=== PATIENT | female | born 1945 | race Caucasian/White ===

== ENCOUNTER 2018-07-26 13:21 | Emergency (ER) | payer MEDICARE, BC ==
[2018-07-26] MEDS ORDERED: 0.9 % SODIUM CHLORIDE 1,000 ML BAG IV ONE (13:35)
--- NOTE | 2018-07-26 13:40 | Emergency Department Record ---
History of Present Illness - General Chief complaint: Hypogylcemia Stated complaint: LOW BLOOD SUGAR Time Seen by Provider: 07/26/18 13:34 Source: Patient, Family Mode of Arrival: EMS Limitations: No limitations - History of Present Illness Initial comments: The patient is here due to her finding her on the bathroom floor unresponsive. EMS was called and found her BS to be 24. She did receive an amp of D50 with improvement in her mental status. Now she is stating she does not feel well but denies any CP, SOB, ERWIN or any recent illnesses. Per the patient's she was feeling well prior and went into the bathroom about an hour ago. He then was doing a few things around the house and then was calling for her and found her lying on the floor not answering him. He then called 911. There was no obvious head injury or any lacerations. MD Complaint: Generalized weakness Onset/Timin -: Hour(s) Location: Generalized Severity: Severe - [place] Coma Scale Eye Response: (4) Open spontaneously Motor Response: (6) Obeys commands Verbal Response: (4) Confused conversation [place] Total: 14 - Related Data Allergies Allergy/AdvReac Type Severity Reaction Status Date / Time adhesive tape Allergy Severe RASH Verified 07/26/18 15:31 betamethasone Allergy Severe RASH Verified 07/26/18 15:31 latex Allergy Severe RASH Verified 07/26/18 15:31 terbinafine Allergy Severe RASH Verified 07/26/18 15:31 adhesive Allergy Intermediate RASH Verified 07/26/18 15:31 fluconazole [From Diflucan] Allergy Intermediate RASH Verified 07/26/18 15:31 silver sulfadiazine Allergy Intermediate RASH Verified 07/26/18 15:31 Travel Screening - Travel/Exposure Within Last 30 Days Have you traveled within the last 30 days?: No - Travel/Exposure Within Last Year Have you traveled outside the [place] in the last year?: No - Additonal Travel Details Have you been exposed to anyone with a communicable illness?: No - Travel Symptoms Symptom Screening: None Review of Systems Constitutional: Denies: Chills, Fever Eyes: Denies: Eye discharge ENT: Denies: Congestion Respiratory: Denies: Dyspnea Cardiovascular: Denies: Arrhythmia, Chest pain Endocrine: Reports: Fatigue Gastrointestinal: Denies: Abdominal pain Genitourinary: Denies: Dysuria Musculoskeletal: Denies: Arthralgia Skin: Denies: Bruising Past Medical History - SOCIAL HISTORY Smoking Status: Former smoker Alcohol Use: None Drug Use: None Family Medical History Any Significant Family History?: No Family Hx Comment (NOT TO BE USED IN PLACE OF ITEMS BELOW): pt unable to answer questions regarding her history or family history Course Vital Signs 07/26/18 13:29 Temperature 90.5 F L Pulse Rate 80 Respiratory 16 Rate Blood Pressure 188/74 Pulse Ox 98 - Reevaluation(s) Reevaluation #1: The patient is doing a lot better at this time. Her blood sugar is back to normal and she is talking and walking normally with no problems. She was instructed to see her PCP this week for recheck and to decrease her Insulin mildly due to the hypoglycemia. The patient denies any pain, visual changes, nausea, or ERWIN. 07/26/18 15:47 Reevaluation #2: 2nd EKG: NSR at 78. Normal QT interval. 07/26/18 15:53 Reevaluation #3: The patient is doing a lot better at this time. Her temp is back to normal and she is ambulating normally. She is ready for home. 07/26/18 16:05 Medical Decision Making - Data Complexity MDM Data: Labs Ordered and/or Reviewed, X-Ray Ordered and/or Reviewed, EKG Ordered and/or Reviewed - Lab Data Result diagrams: 07/26/18 13:45 07/26/18 13:45 - EKG Data -: EKG Interpreted by Me (NSR at 78, Prolonged NE and borderline prolonged QT. Neg ischemic changes.) - Radiology Data Radiology results: Report reviewed (Head CT: Neg for any acute changes. CXR: Neg for acute changes.) Disposition Disposition: Discharge Clinical Impression: Hypoglycemia Disposition: Home, Self-Care Condition: (2) Stable Instructions: Hypoglycemia in a Person with Diabetes (ED) Additional Instructions: Please decrease your Insulin dose by 20% and eat regular meals. Please monitor your blood sugar twice a day and see your family doctor next week to possibly adjust your Insulin. Return to the ER for any problems or new issues. Forms: Patient Portal Access Time of Disposition: 16:07 Quality - Quality Measures Quality Measures: N/A - Blood Pressure Screening View Details: Yes Does Patient Have Any of the Following: Active Dx of HTN Blood Pressure Classification: Pre-Hypertensive BP Reading Systolic Measurement: 132 Diastolic Measurement: 48 Screening for High Blood Pressure: Patient Exclusion, Hx of HTN [G9744]
[2018-07-26 13:54] LABS: BASO % 0.2 % (0-6); EOS % 0.8 % (0-6); GRAN % 73.3 % (47-80); HEMOGLOBIN 10.8 gm/dl (11.6-16.0); LYMPH % 15.6 % (16-45); MEAN CELL VOLUME 88.5 fl (81-97); MEAN CORPUSCULAR HEMOGLOBIN 28.1 pg (27-33); MEAN CORPUSCULAR HGB CONC 31.8 g/dl (32-36); MONO % 10.1 % (0-9); PLATELET COUNT 397 K/uL (130-400); RED BLOOD COUNT 3.84 M/uL (3.80-5.40); RED CELL DISTRIBUTION WIDTH 14.1 % (11.5-14.5); WHITE BLOOD COUNT W/O DIFF 14.6 K/uL (4.2-12.2)
[2018-07-26 14:08] LABS: BILIRUBIN,TOTAL 0.2 mg/dL (0.2-1.0); CREATININE 1.1 mg/dL (0.5-0.9)
[2018-07-26 14:09] LABS: TOTAL PROTEIN 6.5 g/dL (6.6-8.7)
[2018-07-26 14:13] LABS: ALB/GLOB RATIO 1.5 (1.1-1.8); ALBUMIN 3.9 g/dL (4.0-5.0)
[2018-07-26] MEDS ORDERED: ONDANSETRON HCL IV 4 MG/2 ML VIAL IVP ONE (14:55)
[2018-07-26 15:14] LABS: URINE APPEARANCE CLEAR; URINE BILIRUBIN NEGATIVE (NEGATIVE); URINE BLOOD TRACE-I (NEGATIVE); URINE COLOR YELLOW; URINE KETONE NEGATIVE (NEGATIVE); URINE LEUKOCYTE ESTERASE NEGATIVE (NEGATIVE); URINE NITRITE NEGATIVE (NEGATIVE); URINE PROTEIN NEGATIVE (NEGATIVE); URINE UROBILINOGEN 0.2 E.U./dL (0.20 - 1.00)
[2018-07-26 15:23] LABS: URINE RBC 0 - 2 (NONE SEEN); URINE WBC NONE SEEN (0-2/hpf)
--- NOTE | 2018-07-28 12:51 | RADIOLOGY REPORT ---
EXAM: CHEST, TWO VIEWS HISTORY: WEAKNESS. TECHNIQUE: AP and lateral views of the chest were obtained. Comparison: None. FINDINGS: The heart size is normal. The lungs appear hyperinflated suggesting underlying COPD. There is probably calcification of the mitral annulus. No definite acute infiltrate seen and no pleural effusion or pneumothorax evident. IMPRESSION: 1. HYPERINFLATION SUGGESTING COPD. NO ACUTE INFILTRATE EVIDENT. 2. SOME CALCIFICATION OF THE MITRAL ANNULUS. JOB NUMBER: [id number] MTDD
--- NOTE | 2018-07-28 12:54 | CT SCAN REPORT ---
EXAM: EMERGENCY HEAD CT HISTORY: CONFUSION, LOSS OF CONSCIOUSNESS. TECHNIQUE: Axial CT scan of the head was performed without IV contrast. Comparison: None. FINDINGS: No definite acute intracranial hemorrhage identified. No focal mass effect or midline shift evident. Mild generalized atrophy is present. No definite acute infarct or intracranial mass lesion seen. No depressed calvarial fracture evident. There is probably some postop change involving the left orbit and correlation with the surgical history is suggested. IMPRESSION: 1. NO ACUTE INTRACRANIAL HEMORRHAGE OR FOCAL MASS EFFECT EVIDENT. 2. GENERALIZED ATROPHY. 3. PROBABLE POSTOP CHANGE LEFT ORBIT. JOB NUMBER: [id number] MTDD
== END 2018-07-26 16:28 | disposition home or self-care (01) ==
LOC: ER 13:21
DX: E11.649 Type 2 diabetes mellitus with hypoglycemia without coma (principal); R53.1 Weakness; Z79.4 Long term (current) use of insulin; I10 Essential (primary) hypertension; Z87.891 Personal history of nicotine dependence
CPT/HCPCS: 99284 ×2; 96374; 96361; 85025; 80053; 81001; 84443; 84484; 71046; 70450; 93005; 93010; J2405; J7030

== ENCOUNTER 2018-08-26 04:16 | Observation (INO) | payer MEDICARE, BC ==
[2018-08-26] MEDS ORDERED: ONDANSETRON HCL IV 4 MG/2 ML VIAL IVP ONE (04:26)
[2018-08-26] MEDS ORDERED: 0.9 % SODIUM CHLORIDE 1000ML 1,000 ML IV SCH (04:30)
--- NOTE | 2018-08-26 04:32 | Emergency Department Record ---
History of Present Illness - General Chief complaint: Weakness Stated complaint: WEAKNESS Time Seen by Provider: 08/26/18 04:25 Source: Patient Mode of Arrival: EMS Limitations: No limitations - History of Present Illness Initial comments: 73 yo female presents to ED for evaluation of nausea, vomiting, and diarrhea that began several hours ago. Patient called EMS as she was unable to stand from the bathroom due to copious loose stools. Upon standing, the patient experienced near syncope and cardiac pause. Patient denies fevers, chills, or abdominal pain symptoms. Patient did receive Zofran [employer]. MD Complaint: Generalized weakness Onset/Timin -: Hour(s) Location: Generalized Severity: Moderate Consistency: Constant Improves with: None Worsens with: None Associated Symptoms: Nausea/vomiting - [place] Coma Scale Eye Response: (4) Open spontaneously Motor Response: (6) Obeys commands Verbal Response: (5) Oriented Oumar Total: 15 - Symptoms of Stroke Baseline State: Baseline State - Related Data Allergies Allergy/AdvReac Type Severity Reaction Status Date / Time adhesive tape Allergy Severe RASH Verified 08/26/18 05:54 betamethasone Allergy Severe RASH Verified 08/26/18 05:54 latex Allergy Severe RASH Verified 08/26/18 05:54 terbinafine Allergy Severe RASH Verified 08/26/18 05:54 adhesive Allergy Intermediate RASH Verified 08/26/18 05:54 fluconazole [From Diflucan] Allergy Intermediate RASH Verified 08/26/18 05:54 silver sulfadiazine Allergy Intermediate RASH Verified 08/26/18 05:54 Travel Screening - Travel/Exposure Within Last 30 Days Have you traveled within the last 30 days?: No - Travel/Exposure Within Last Year Have you traveled outside the [place] in the last year?: No - Additonal Travel Details Have you been exposed to anyone with a communicable illness?: No - Travel Symptoms Symptom Screening: Diarrhea, Vomiting Review of Systems Constitutional: Denies: Chills, Fever, Malaise, Night sweats Eyes: Denies: Eye discharge, Eye pain ENT: Denies: Congestion, Ear pain, Epistaxis Respiratory: Denies: Cough, Dyspnea Cardiovascular: Denies: Chest pain, Dyspnea on exertion Endocrine: Denies: Fatigue, Heat or cold intolerance Gastrointestinal: Reports: Diarrhea, Nausea, Vomiting Genitourinary: Denies: Incontinence, Retention Musculoskeletal: Denies: Arthralgia, Back pain, Gout, Joint swelling Skin: Denies: Bruising, Change in color Neurological: Denies: Abnormal gait, Confusion, Headache, Seizure Psychiatric: Denies: Anxiety Hematological/Lymphatic: Denies: Anemia, Blood Clots Past Medical History - SOCIAL HISTORY Smoking Status: Former smoker Alcohol Use: None Drug Use: None - RESPIRATORY Hx Respiratory Disorders: No - CARDIOVASCULAR Hx Cardio Disorders: Yes Hx Hypertension: Yes - NEURO Hx Neuro Disorders: No - GI Hx GI Disorders: No - Hx Genitourinary Disorders: No - ENDOCRINE Hx Endocrine Disorders: Yes Hx Diabetes: Yes - MUSCULOSKELETAL Hx Musculoskeletal Disorders: No - PSYCH Hx Psych Problems: No - HEMATOLOGY/ONCOLOGY Hx Hematology/Oncology Disorders: No Family Medical History Any Significant Family History?: No Family Hx Comment (NOT TO BE USED IN PLACE OF ITEMS BELOW): pt unable to answer questions regarding her history or family history Hx Cancer: Grandparents Physical Exam - General General Appearance: Alert, Oriented x3, Cooperative, Mild distress Limitations: No limitations - Head Head exam: Atraumatic, Normocephalic, Normal inspection Head exam detail: negative: Abrasion, Contusion, Reza's sign, General tenderness, Hematoma, Laceration - Eye Eye exam: Normal appearance. negative: Conjunctival injection, Periorbital swelling, Periorbital tenderness, Scleral icterus - ENT Ear exam: negative: Auricular hematoma, Auricular trauma Nasal Exam: negative: Active bleeding, Discharge, Dried blood, Foreign body Mouth exam: negative: Drooling, Laceration, Muffled voice, Tongue elevation - Neck Neck exam: Normal inspection. negative: Meningismus, Tenderness - Respiratory Respiratory exam: Normal lung sounds bilaterally. negative: Rales, Respiratory distress, Rhonchi, Stridor - Cardiovascular Cardiovascular Exam: Regular rate, Normal rhythm, Normal heart sounds - GI/Abdominal GI/Abdominal exam: Soft. negative: Rebound, Rigid, Tenderness - Rectal Rectal exam: Deferred - exam: Deferred - Extremities Extremities exam: negative: Pedal edema, Tenderness - Back Back exam: Denies: CVA tenderness (R), CVA tenderness (L) - Neurological Neurological exam: Alert, Oriented X3 - Psychiatric Psychiatric exam: Normal affect, Normal mood - Skin Skin exam: Normal color. negative: Abrasion Type of lesion: negative: abrasion Course Vital Signs 08/26/18 04:17 Temperature 97.7 F Pulse Rate 80 Respiratory 20 Rate Blood Pressure 120/53 Pulse Ox 96 - Reevaluation(s) Reevaluation #1: 08/26/18 04:31 EKG: NSR 79 Normal axis, normal intervals No acute ST-T wave changes Reevaluation #2: 08/26/18 04:55 Laboartory studies were reviewed: WBC 21.2 BUN 35 Creatinine 1.6 (baseline 1.1) Glucose 249 Phenergan and benadryl ordered via IV for recurrent nausea symptoms (given Zofran pre-hospital). Will obtain CT imaging without contrast for further evaluation. Reevaluation #3: 08/26/18 05:35 Patient is back from CT imaging, reports improvement in her symptoms. Reevaluation #4: 08/26/18 07:43 CT Abdomen and Pelvis: Thickened esophagus suspicious for hiatal hernia Tiny non-obstructing calculus No significant bowel obstruction No acute inflammatory process. Patient was reassessed, reports improvement in her symptoms however remains tired. Will admit for observation and correction of her JIM/dehydration. Case was discussed with Ela (HARDEEP), will accept admission at this time. Medical Decision Making - Lab Data Result diagrams: 08/26/18 04:25 08/26/18 04:25 Disposition Disposition: Admit Clinical Impression: Nausea vomiting and diarrhea, Dehydration, JIM (acute kidney injury) Disposition: Still a Patient at [facility] Decision to Admit: Admit from ER Decision to Admit Date: 08/26/18 Decision to Admit Time: 07:45 Condition: (2) Stable Forms: Patient Portal Access Time of Disposition: 07:45 Quality - Quality Measures Quality Measures: N/A - Blood Pressure Screening Does Patient Have Any of the Following: Active Dx of HTN Blood Pressure Classification: Pre-Hypertensive BP Reading Systolic Measurement: 120 Diastolic Measurement: 53 Screening for High Blood Pressure: Patient Exclusion, Hx of HTN [G9744]
[2018-08-26 04:41] LABS: HEMATOCRIT 38.4 % (35.0-47.0); HEMOGLOBIN 12.4 gm/dl (11.6-16.0); MEAN CELL VOLUME 88.9 fl (81-97); MEAN CORPUSCULAR HEMOGLOBIN 28.7 pg (27-33); MEAN CORPUSCULAR HGB CONC 32.3 g/dl (32-36); MEAN PLATELET VOLUME 11.5 fl (7.4-10.4); PLATELET COUNT 337 K/uL (130-400); RED BLOOD COUNT 4.32 M/uL (3.80-5.40); RED CELL DISTRIBUTION WIDTH 13.5 % (11.5-14.5)
[2018-08-26 04:42] LABS: WHITE BLOOD COUNT W/O DIFF 21.2 K/uL (4.2-12.2)
[2018-08-26 04:47] LABS: BILIRUBIN,TOTAL 0.3 mg/dL (0.2-1.0); CREATININE 1.6 mg/dL (0.5-0.9); TOTAL PROTEIN 7.3 g/dL (6.6-8.7)
[2018-08-26 04:52] LABS: ALB/GLOB RATIO 1.3 (1.1-1.8); ALBUMIN 4.1 g/dL (4.0-5.0)
[2018-08-26] MEDS ORDERED: DIPHENHYDRAMINE HCL 50 MG/ML VIAL IVP ONE (04:52)
[2018-08-26] MEDS ORDERED: PROMETHAZINE HCL 12.5 MG in 0.9 % SODIUM CHLORIDE 100ML 100 ML IVPB ONE (04:52)
[2018-08-26 05:45] LABS: URINE APPEARANCE CLEAR; URINE BILIRUBIN NEGATIVE (NEGATIVE); URINE BLOOD TRACE-I (NEGATIVE); URINE COLOR YELLOW; URINE KETONE NEGATIVE (NEGATIVE); URINE LEUKOCYTE ESTERASE NEGATIVE (NEGATIVE); URINE NITRITE NEGATIVE (NEGATIVE); URINE PROTEIN TRACE (NEGATIVE); URINE UROBILINOGEN 0.2 E.U./dL (0.20 - 1.00)
[2018-08-26 05:46] LABS: URINE BACTERIA NONE SEEN; URINE EPITHELIAL CELLS 0 - 2 (FEW); URINE RBC 0 - 2 (NONE SEEN); URINE WBC 0 - 2 (0-2/hpf)
[2018-08-26] MEDS ORDERED: INSULIN GLARGINE HUM REC ANLOG 100 UNIT SQ SCH (09:13)
[2018-08-26] MEDS ORDERED: 0.9 % SODIUM CHLORIDE 1000ML 1,000 ML IV PRN (09:13)
[2018-08-26] MEDS ORDERED: ONDANSETRON HCL IV 4 MG/2 ML VIAL IVP PRN (09:13)
--- NOTE | 2018-08-26 09:46 | CT SCAN REPORT ---
EXAM: CT OF THE ABDOMEN AND PELVIS WITHOUT CONTRAST HISTORY: DIFFUSE ABDOMINAL PAIN. TECHNIQUE: Sequential axial images were obtained from the diaphragms through the ischiorectal fossa without intravenous or oral contrast administration. FINDINGS: There is abnormal wall thickening of the distal esophagus and gastroesophageal junction. Direct visualization is recommended. There is a small sliding type hiatal hernia. Nonopacified liver appears normal. The gallbladder, pancreas, spleen appear normal. The adrenal glands and kidneys appear normal. There is a nonobstructing calculus in the left kidney. There are vascular calcifications present. Fat containing umbilical hernia. The small bowel appears normal. The appendix is visualized and appears normal. There is colonic diverticulosis without evidence of diverticulitis. The urinary bladder appears normal. There is atherosclerotic change of the abdominal aorta. There is degenerative change of the lumbar spine most pronounced at L4-L5. IMPRESSION: 1. MILD WALL THICKENING OF THE DISTAL ESOPHAGUS. SMALL SLIDING TYPE HIATAL HERNIA. DIRECT VISUALIZATION IS RECOMMENDED. 2. NONOBSTRUCTING CALCULUS LEFT KIDNEY. 3. FAT CONTAINING UMBILICAL HERNIA. 4. MULTILEVEL DEGENERATIVE CHANGE OF THE LUMBAR SPINE. FINDINGS MOST PRONOUNCED AT THE L4-L5 LEVEL. JOB NUMBER: [id number] [facility]
--- NOTE | 2018-08-26 11:17 | History & Physical ---
History of Present Illness - Date of Service Date of Service for History & Physical: 08/26/18 - History of Present Illness Admitting Diagnosis: Nausea, vomiting, diarrhea. JIM. Dehydration History of Present Illness: 08/26/18 73 yo female presents N/V/D that began at 0100 on 08/26/2018. Pt had continuous loose stools during the night causing weakness and experienced a near syncope episode while attempting to stand from the toilet. called EMS and during transport to [facility] pt experience N/V and was given Zofran. Pt denies fever , chills, night sweats, cough, congestion, abdominal pain, or recent illness. Admitted for observation to correct JIM/Dehydration. PMH includes DM with acidity tester use of insulin, HTN, and nicotine dependence. Recent ER visit on 07/26/2018 for night time hypoglycemia, blood sugar 24. VS: Temp 97.7, BP 134/58, HR 99, RR 20, 99% RA WBC 21.2, Hgb 12.4, Hct 38.4, Plt 337 Na 136, K 4.2, Cl 101, CO2 19, BUN 35 (baseline 30), Cr 1.6 (baseline 1.1), eGFR 33 (baseline 52), Glucose 249, AST 10, ALT 10, Lipase 65 UA neg for infection, trace protein and glucose 100mg/dL Rotavirus antigen pending EKG NSR, HR 79 CT Abd/pelvis No significant bowel obstruction, no acute inflammatory process, mild esophageal wall thickening, suspicion of hiatal hernia, small non- obstructing calculus left kidney, degenerative change of lumbar spine at L4-L5 08/26/18 Pt resting in bed, no acute distress, tolerating clear liquids. A&Ox4 denies current N/V/D, dizziness, abdominal or chest pain, or sob. Reports concern of kidney function (per PCP Carlin Rogers) and elevated WBC, chronic back pain r/t spinal stenosis. Continue clear liquid diet, IVF hydration, recheck CBC w/ diff, CMP, and check Hgb A1C this afternoon. PCP: Carlin Rogers Travel Screening - Travel/Exposure Within Last 30 Days Have you traveled within the last 30 days?: No - Travel/Exposure Within Last Year Have you traveled outside the [place] in the last year?: No - Additonal Travel Details Have you been exposed to anyone with a communicable illness?: No - Travel Symptoms Symptom Screening: Diarrhea, Vomiting Review of Systems Constitutional: Denies: Chills, Fever, Malaise, Night sweats Eyes: Denies: Eye discharge, Eye pain ENT: Denies: Congestion, Ear pain, Epistaxis Respiratory: Denies: Cough, Dyspnea Cardiovascular: Denies: Chest pain, Dyspnea on exertion Endocrine: Denies: Fatigue, Heat or cold intolerance Gastrointestinal: Reports: Diarrhea, Nausea, Vomiting Genitourinary: Denies: Incontinence, Retention Musculoskeletal: Denies: Arthralgia, Back pain, Gout, Joint swelling Skin: Denies: Bruising, Change in color Neurological: Denies: Abnormal gait, Confusion, Headache, Seizure Psychiatric: Denies: Anxiety Hematological/Lymphatic: Denies: Anemia, Blood Clots Past Medical History - SOCIAL HISTORY Smoking Status: Former smoker Alcohol Use: None Drug Use: None - RESPIRATORY Hx Respiratory Disorders: No - CARDIOVASCULAR Hx Cardio Disorders: Yes Hx Hypertension: Yes - NEURO Hx Neuro Disorders: No - GI Hx GI Disorders: No - Hx Genitourinary Disorders: No - ENDOCRINE Hx Endocrine Disorders: Yes Hx Diabetes: Yes Hx Thyroid Disease: No - MUSCULOSKELETAL Hx Musculoskeletal Disorders: Yes - PSYCH Hx Psych Problems: No - HEMATOLOGY/ONCOLOGY Hx Hematology/Oncology Disorders: No Family Medical History Any Significant Family History?: Yes Family Hx Comment (NOT TO BE USED IN PLACE OF ITEMS BELOW): pt unable to answer questions regarding her history or family history Hx Cancer: Grandparents Hx Diabetes: Grandparents Hx Stroke: Mother H&P Meds/Allergies - Allergies Allergies: Allergies Allergy/AdvReac Type Severity Reaction Status Date / Time adhesive tape Allergy Severe RASH Verified 08/26/18 05:54 betamethasone Allergy Severe RASH Verified 08/26/18 05:54 latex Allergy Severe RASH Verified 08/26/18 05:54 terbinafine Allergy Severe RASH Verified 08/26/18 05:54 adhesive Allergy Intermediate RASH Verified 08/26/18 05:54 fluconazole [From Diflucan] Allergy Intermediate RASH Verified 08/26/18 05:54 silver sulfadiazine Allergy Intermediate RASH Verified 08/26/18 05:54 - Home Medications Home Medications Medication Instructions Recorded Confirmed Last Taken Amlodipine Besylate [Norvasc] 5 mg PO QHS 08/26/18 08/26/18 Unknown Insulin Glargine,Hum.rec.anlog 10 unit SQ QHS 08/26/18 08/26/18 Unknown [Lantus] - Active Medications Active Medications: Current Medications Sodium Chloride () 1,000 mls @ 125 mls/hr IV .Q8H PRN PRN Reason: LARGE VOLUME IV Non-Formulary Medication (Insulin Glargine,Hum.Rec.Anlog [Lantus]) 100 unit SQ ASDIR JENNI Ondansetron HCl (Zofran) 4 mg IVP Q4H PRN PRN Reason: NAUSEA Physical Exam - Vital Signs Vital Signs: Vital Signs - Last 24 Hrs Temp Pulse Pulse Resp BP BP Pulse Ox 08/26/18 09:00 16 08/26/18 08:40 98.7 F 08/26/18 08:17 63 18 125/57 97 08/26/18 06:45 89 20 129/64 96 08/26/18 05:35 99 H 20 134/58 99 08/26/18 04:17 97.7 F 80 20 120/53 96 - General General Appearance: Alert, Oriented x3, Cooperative, No acute distress Limitations: No limitations - Head Head exam: Atraumatic, Normocephalic, Normal inspection Head exam detail: negative: Abrasion, Contusion, Reza's sign, General tenderness, Hematoma, Laceration - Eye Eye exam: Normal appearance. negative: Conjunctival injection, Periorbital swelling, Periorbital tenderness, Scleral icterus - ENT Ear exam: negative: Auricular hematoma, Auricular trauma Nasal Exam: negative: Active bleeding, Discharge, Dried blood, Foreign body Mouth exam: negative: Drooling, Laceration, Muffled voice, Tongue elevation - Neck Neck exam: Normal inspection. negative: Meningismus, Tenderness - Respiratory Respiratory exam: Normal lung sounds bilaterally. negative: Rales, Respiratory distress, Rhonchi, Stridor - Cardiovascular Cardiovascular Exam: Regular rate, Normal rhythm, Normal heart sounds - GI/Abdominal GI/Abdominal exam: Soft. negative: Rebound, Rigid, Tenderness - Rectal Rectal exam: Deferred - exam: Deferred - Extremities Extremities exam: negative: Pedal edema, Tenderness - Back Back exam: Denies: CVA tenderness (R), CVA tenderness (L) - Neurological Neurological exam: Alert, Oriented X3 - Psychiatric Psychiatric exam: Normal affect, Normal mood - Skin Skin exam: Normal color. negative: Abrasion Type of lesion: negative: abrasion Results - Labs Result Diagrams: 08/26/18 04:25 08/26/18 04:25 Labs Last 24 Hours: Laboratory Results - last 24 hr 08/26/18 08/26/18 08/26/18 04:25 04:25 05:45 WBC 21.2 H* RBC 4.32 Hgb 12.4 Hct 38.4 MCV 88.9 MCH 28.7 MCHC 32.3 RDW 13.5 Plt Count 337 MPV 11.5 H Neutrophils % 74.0 Band Neutrophils % 0.0 Eosinophils % Not Reportable Basophils % Not Reportable Lymphocytes 16.0 Monocytes 10.0 H Basophils 0.0 Eosinophil Count 0.0 Sodium 136 Potassium 4.2 Chloride 101 Carbon Dioxide 19.0 L Anion Gap 16.0 BUN 35 H Creatinine 1.6 H Estimated GFR 33 Random Glucose 249 H Calcium 9.7 Total Bilirubin 0.30 AST 10 ALT 10 Alkaline Phosphatase 94 H Total Protein 7.3 Albumin 4.1 Globulin 3.2 Albumin/Globulin Ratio 1.3 Lipase 65 H Urine Color Yellow Urine Appearance Clear Urine pH 6.0 Ur Specific [place] 1.025 Urine Protein Trace H Urine Glucose (UA) 100 mg/dl H Urine Ketones Negative Urine Blood Trace-i Urine Nitrite Negative Urine Bilirubin Negative Urine Urobilinogen 0.2 Ur Leukocyte Esterase Negative Urine RBC 0 - 2 Urine WBC 0 - 2 Ur Epithelial Cells 0 - 2 Urine Bacteria None seen - Imaging and Cardiology CT scan - abdomen Status: Report reviewed (mild distal esophagus wall thickening, small sliding type hiatal hernia, nonobstructing left kidney calculus, degenerative changes of lumbar spine) VTE H&P Assessment - Risk for VTE Risk for VTE: Yes Risk Level: Low Risk Assessment Date: 08/26/18 Risk Assessment Time: 11:26 VTE Orders Placed or Will Be Placed: Yes Plan - Detailed Diagnosis and Plan (1) JIM (acute kidney injury) Current Visit: Yes Status: Acute Base Code: N17.9 - ACUTE KIDNEY FAILURE, UNSPECIFIED Comment: 08/26/18: -In ED, BUN 25, creat 1.6, GFR 33 (on 07/26/18, BUN was 30, creat 1.1, GFR 52) -Continue NS at 125/hr -no acute process identified on abd/pelvis CT -Will recheck labs at 1200 (2) Diabetes mellitus Current Visit: Yes Status: Acute Base Code: E11.9 - TYPE 2 DIABETES MELLITUS WITHOUT COMPLICATIONS Comment: 08/26/18: -hx of DM, glucose in urine on UA in ED, will check A1C with labs -continue home insulin regimen -pt. is tolerating clear fluids at this time (3) Dehydration Current Visit: Yes Status: Acute Base Code: E86.0 - DEHYDRATION Comment: : -dehydration secondary to N/V -NS @ 125/hr -Will recheck cmp at 1200 today -pt is tolerating clear fluids (4) Nausea vomiting and diarrhea Current Visit: Yes Status: Acute Base Code: R11.2 - NAUSEA WITH VOMITING, UNSPECIFIED; R19.7 - DIARRHEA, UNSPECIFIED Comment: 08/26/18: -Diarrhea resolved, no N/V since admission -UA negative for infection, pos for glucose 100mg/dl and trace protein -Abd/pelvis CT demonstrated mild distal esophagus wall thickening, small hiatal hernia, left nonobstructing renal calculus, fat-containing umbilical hernia, and multilevel degenerative changes of lumbar spine -will continue to advance diet as tolerated, IVF, zofran prn for nausea (5) At risk for deep venous thrombosis Current Visit: Yes Status: Acute Base Code: Z91.89 - OTH PERSONAL RISK FACTORS, NOT ELSEWHERE CLASSIFIED Comment: 08/26/18: -Will order lovenox 40mg SC if admission longer than 24 hours (6) Full code status Current Visit: Yes Status: Acute Base Code: Z78.9 - OTHER SPECIFIED HEALTH STATUS Comment: 08/26/18: -Pt is a full code
[2018-08-26 12:26] LABS: BASO % 0.1 % (0-6); EOS % 0.5 % (0-6); GRAN % 77.5 % (47-80); HEMOGLOBIN 10.1 gm/dl (11.6-16.0); LYMPH % 15.5 % (16-45); MEAN CELL VOLUME 89.1 fl (81-97); MEAN CORPUSCULAR HEMOGLOBIN 28.1 pg (27-33); MEAN CORPUSCULAR HGB CONC 31.6 g/dl (32-36); MEAN PLATELET VOLUME 10.7 fl (7.4-10.4); MONO % 6.4 % (0-9); PLATELET COUNT 318 K/uL (130-400); RED BLOOD COUNT 3.59 M/uL (3.80-5.40); RED CELL DISTRIBUTION WIDTH 13.4 % (11.5-14.5); WHITE BLOOD COUNT W/O DIFF 10.9 K/uL (4.2-12.2)
[2018-08-26 12:37] LABS: ALB/GLOB RATIO 1.4 (1.1-1.8); ALBUMIN 3.6 g/dL (4.0-5.0); BILIRUBIN,TOTAL 0.3 mg/dL (0.2-1.0); CREATININE 1.3 mg/dL (0.5-0.9); TOTAL PROTEIN 6.1 g/dL (6.6-8.7)
--- NOTE | 2018-08-26 14:05 | Discharge Summary ---
Providers Discharge Summary Date: 08/26/18 Date of admission: 08/26/18 08:17 Expected Date of Discharge: 08/26/18 Attending physician: JESSICA LINO Physical Exam - Vital Signs Vital Signs: Vital Signs - Last 24 Hrs Temp Pulse Pulse Resp BP BP Pulse Ox 08/26/18 09:00 16 08/26/18 08:40 98.7 F 08/26/18 08:17 63 18 125/57 97 08/26/18 06:45 89 20 129/64 96 08/26/18 05:35 99 H 20 134/58 99 08/26/18 04:17 97.7 F 80 20 120/53 96 - General General Appearance: Alert, Oriented x3, Cooperative, No acute distress Limitations: No limitations - Head Head exam: Atraumatic, Normocephalic, Normal inspection Head exam detail: negative: Abrasion, Contusion, Reza's sign, General tenderness, Hematoma, Laceration - Eye Eye exam: Normal appearance. negative: Conjunctival injection, Periorbital swelling, Periorbital tenderness, Scleral icterus - ENT Ear exam: negative: Auricular hematoma, Auricular trauma Nasal Exam: negative: Active bleeding, Discharge, Dried blood, Foreign body Mouth exam: negative: Drooling, Laceration, Muffled voice, Tongue elevation - Neck Neck exam: Normal inspection. negative: Meningismus, Tenderness - Respiratory Respiratory exam: Normal lung sounds bilaterally. negative: Rales, Respiratory distress, Rhonchi, Stridor - Cardiovascular Cardiovascular Exam: Regular rate, Normal rhythm, Normal heart sounds - GI/Abdominal GI/Abdominal exam: Soft. negative: Rebound, Rigid, Tenderness - Rectal Rectal exam: Deferred - exam: Deferred - Extremities Extremities exam: negative: Pedal edema, Tenderness - Back Back exam: Denies: CVA tenderness (R), CVA tenderness (L) - Neurological Neurological exam: Alert, Oriented X3 - Psychiatric Psychiatric exam: Normal affect, Normal mood - Skin Skin exam: Normal color. negative: Abrasion Type of lesion: negative: abrasion Hospitalization - Hospitalization Admission Diagnosis: Nausea, vomiting, diarrhea. JIM. Dehydration - Problem List/Discharge Diagnosis (1) JIM (acute kidney injury) Current Visit: Yes Status: Acute Base Code: N17.9 - ACUTE KIDNEY FAILURE, UNSPECIFIED Comment: 08/26/18: -Repeat labs showed improvement: WBC now 10.9, BUN 30, Creat 1.3, GFR 43, A1C was 8.0 -Pt is tolerating PO with no nausea -Will d/c home today (2) Diabetes mellitus Current Visit: Yes Status: Acute Base Code: E11.9 - TYPE 2 DIABETES MELLITUS WITHOUT COMPLICATIONS Comment: 08/26/18: -hx of DM, glucose in urine on UA in ED -continue home insulin regimen -pt. is tolerating clear fluids at this time -A1C 8.0 (3) Dehydration Current Visit: Yes Status: Acute Base Code: E86.0 - DEHYDRATION Comment: : -dehydration secondary to N/V -WBC now 10.9, BUN 30, Creat 1.3, GFR 43, A1C was 8.0 (4) Nausea vomiting and diarrhea Current Visit: Yes Status: Acute Base Code: R11.2 - NAUSEA WITH VOMITING, UNSPECIFIED; R19.7 - DIARRHEA, UNSPECIFIED Comment: 08/26/18: -Diarrhea resolved, no N/V since admission -UA negative for infection, pos for glucose 100mg/dl and trace protein -Abd/pelvis CT demonstrated mild distal esophagus wall thickening, small hiatal hernia, left nonobstructing renal calculus, fat-containing umbilical hernia, and multilevel degenerative changes of lumbar spine (5) At risk for deep venous thrombosis Current Visit: Yes Status: Acute Base Code: Z91.89 - OTH PERSONAL RISK FACTORS, NOT ELSEWHERE CLASSIFIED Comment: 08/26/18: -Will order lovenox 40mg SC if admission longer than 24 hours (6) Full code status Current Visit: Yes Status: Acute Base Code: Z78.9 - OTHER SPECIFIED HEALTH STATUS Comment: 08/26/18: -Pt is a full code - Hospitalization Course Disposition: Home, Self-Care Hospital Course: 08/26/18 73 yo female presents N/V/D that began at 0100 on 08/26/2018. Pt had continuous loose stools during the night causing weakness and experienced a near syncope episode while attempting to stand from the toilet. called EMS and during transport to [facility] pt experience N/V and was given Zofran. Pt denies fever , chills, night sweats, cough, congestion, abdominal pain, or recent illness. Admitted for observation to correct JIM/Dehydration. PMH includes DM with buttermaker continuous churn use of insulin, HTN, and nicotine dependence. Recent ER visit on 07/26/2018 for night time hypoglycemia, blood sugar 24. VS: Temp 97.7, BP 134/58, HR 99, RR 20, 99% RA WBC 21.2, Hgb 12.4, Hct 38.4, Plt 337 Na 136, K 4.2, Cl 101, CO2 19, BUN 35 (baseline 30), Cr 1.6 (baseline 1.1), eGFR 33 (baseline 52), Glucose 249, AST 10, ALT 10, Lipase 65 UA neg for infection, trace protein and glucose 100mg/dL Rotavirus antigen pending EKG NSR, HR 79 CT Abd/pelvis No significant bowel obstruction, no acute inflammatory process, mild esophageal wall thickening, suspicion of hiatal hernia, small non- obstructing calculus left kidney, degenerative change of lumbar spine at L4-L5 08/26/18 Pt resting in bed, no acute distress, tolerating clear liquids. A&Ox4 denies current N/V/D, dizziness, abdominal or chest pain, or sob. Reports concern of kidney function (per PCP Carlin Rogers) and elevated WBC, chronic back pain r/t spinal stenosis. Continue clear liquid diet, IVF hydration, recheck CBC w/ diff, CMP, and check Hgb A1C this afternoon. Repeat labs showed improvement: WBC now 10.9, BUN 30, Creat 1.3, GFR 43, A1C was 8.0. Pt continues to deny nausea, no diarrhea since prior to ED. Pt. is tolerating clear fluids and has been urinating. Will plan to d/c home today. PCP: Carlin Rogers Procedures: Imaging and X-Rays 08/26/18 04:54 ABDOMEN/PELVIS WO CONTRAST [CT] Stat Cardiology Procedures 08/26/18 04:17 EKG NOW Abnormal Labs: Abnormal Lab Results 08/26/18 08/26/18 08/26/18 Range/Units 04:25 04:25 05:45 WBC 21.2 H* (4.2-12.2) K/uL RBC (3.80-5.40) M/uL Hgb (11.6-16.0) gm/dl Hct (35.0-47.0) % MCHC (32-36) g/dl MPV 11.5 H (7.4-10.4) fl Lymphocytes % (16-45) % Monocytes 10.0 H (0-9) % Potassium (3.4-4.5) mmol/L Carbon Dioxide 19.0 L (22-29) mmol/L BUN 35 H (8-23) mg/dL Creatinine 1.6 H (0.5-0.9) mg/dL Random Glucose 249 H (74-109) mg/dL Hemoglobin A1c (4.0-6.00) % Calcium (8.8-10.2) mg/dL AST (10.0-35.0) U/L Alkaline Phosphatase 94 H (45-87) U/L Total Protein (6.6-8.7) g/dL Albumin (4.0-5.0) g/dL Lipase 65 H (13-60) U/L Urine Protein Trace H (NEGATIVE) Urine Glucose (UA) 100 mg/dl H (NEGATIVE) 08/26/18 08/26/18 08/26/18 Range/Units 12:15 12:15 12:15 WBC (4.2-12.2) K/uL RBC 3.59 L (3.80-5.40) M/uL Hgb 10.1 L (11.6-16.0) gm/dl Hct 32.0 L (35.0-47.0) % MCHC 31.6 L (32-36) g/dl MPV 10.7 H (7.4-10.4) fl Lymphocytes % 15.5 L (16-45) % Monocytes (0-9) % Potassium 4.9 H (3.4-4.5) mmol/L Carbon Dioxide (22-29) mmol/L BUN 30 H (8-23) mg/dL Creatinine 1.3 H (0.5-0.9) mg/dL Random Glucose 156 H (74-109) mg/dL Hemoglobin A1c 8.00 H (4.0-6.00) % Calcium 8.7 L (8.8-10.2) mg/dL AST 9 L (10.0-35.0) U/L Alkaline Phosphatase (45-87) U/L Total Protein 6.1 L (6.6-8.7) g/dL Albumin 3.6 L (4.0-5.0) g/dL Lipase (13-60) U/L Urine Protein (NEGATIVE) Urine Glucose (UA) (NEGATIVE) Condition at Discharge: (2) Stable Discharge Diagnosis: JIM secondary to dehydration VTE Discharge VTE Reason For No Overlap Therapy: Not Indicated Discharge Medications - Discharge Medications Home Medications: Ambulatory Orders Cholecalciferol (Vitamin D3) [Vitamin D3] 2,000 unit PO QHS cap 06/09/18 [Last Taken 07/26/18] Desoximetasone 1 gm TP ASDIR 06/09/18 [Last Taken 07/26/18] Insulin Glargine,Hum.rec.anlog [Lantus] 30 unit SQ 1200 vial 06/09/18 [Last Taken 07/26/18] Lansoprazole [Prevacid] 30 mg PO DAILYAC cap 06/09/18 [Last Taken 07/26/18] Prednisone 5 mg PO 1200 tab 06/09/18 [Last Taken 07/26/18] Lisinopril 20 mg PO DAILY tab 08/25/18 [Last Taken Unknown] Amlodipine Besylate [Norvasc] 5 mg PO QHS 08/26/18 [Last Taken Unknown] Insulin Glargine,Hum.rec.anlog [Lantus] 10 unit SQ QHS 08/26/18 [Last Taken Unknown] Discharge Plan - Discharge Instructions Activity at Discharge: Resume Usual Activities As Tolerated Diet at Discharge: Advance to Usual Diet Additional Instructions: Follow up with your PCP within 1 week Continue to advance diet as tolerated Return to the ED if your symptoms worsen, or if you experience any chest pain Quality Measures - Quality Measures Quality Measures: Advance Directives, Documentation of Current Medications in Medical Record, Elder Maltreatment Screen and Follow-Up Plan, Screening for High Blood Pressure and F/U Documented - Current Medications Quality Measure: Measure #130: Documentation of Current Medications Documentation of Current Medications: <Current Medications Documented/Reviewed> [G8427] - Blood Pressure Screening Quality Measure: Screening for High Blood Pressure and Follow-Up Documented Does Patient Have Any of the Following: Active Dx of HTN Blood Pressure Classification: Pre-Hypertensive BP Reading Systolic Measurement: 125 Diastolic Measurement: 57 Screening for High Blood Pressure: Patient Exclusion, Hx of HTN [G9744] - Advance Directives Quality Measure: Measure #47: Care Plan Advance Directives Established: No Advance Directives Information Provided To Patient: No Advance Directives on File: No Living Will: No Power of Olive Knocker: No Advance Care Planning: <Care Plan/Decision Maker Documented; Discussed & Documented> [[id number]] - Elder Abuse Suspicion Index Screening: Elder Abuse Suspicion Index Screening Rely on people for bathing, dressing, shopping, banking, etc: No Prevented from getting food, clothes, medication, etc: No Made to feel shamed or threatened by someone: No Forced to sign papers or use money against will: No Feel afraid, touched in ways not wanted or hurt physically: No Poor eye contact, withdrawn, malnourished, cuts or bruises: No Screening Result: Negative result EASI Reference Information: Ron RECIO, Gay C, Ladonna D, Candida Abdullahi.Development and validation of a tool to assist physicians identification of elder abuse: The Elder Abuse Suspicion Index (EASI ). Journal of Elder Abuse and Neglect, 2008; 20 (3): 276-300. - Elder Maltreatment Screen Quality Measures: Elder Maltreatment Screen and Follow-Up Plan Elder Maltreatment Screen: <Negative, No Follow-Up Plan Required> [G8703]
== END 2018-08-26 14:50 | disposition home or self-care (01) ==
LOC: ER 04:16 → MEDSURG 08:17 → ER 08:19
PROVIDERS: ADMIT Internal Medicine; ATTEND Internal Medicine
DX: R11.2 Nausea with vomiting, unspecified (principal); R19.7 Diarrhea, unspecified; N17.9 Acute kidney failure, unspecified; E86.0 Dehydration; I10 Essential (primary) hypertension; E11.9 Type 2 diabetes mellitus without complications; Z79.4 Long term (current) use of insulin; F17.210 Nicotine dependence, cigarettes, uncomplicated
CPT/HCPCS: 99285 ×2; 96365; 96375; 96361; 83690; 85025; 80053; 81001; 83036; 85027; 74176; 93005; 93010; G0378; 99236; J1200; J2550; J7030